=== PATIENT | male | born 1970 | race Caucasian/White ===

== ENCOUNTER → 2016-11-21 | Outpatient (CLI) | payer MEDICAID ==
[2016-11-21 10:51] LABS: Aty Lym Flag Slight; HCT 46.1 % (39.0-53.0); HDW 2.58; HGB 15.4 gm/dL (13.0-17.5); MCH 29.6 pg (25.0-35.0); MCHC 33.4 g/dL (31.0-37.0); MCV 88.7 fL (80.0-100.0); Mean Platelet Volume 6.5; RDW 12.9 % (11.5-15.5); WBC 3.6 k/uL (3.8-10.6); WBC (Perox) 3.79
[2016-11-21 10:56] LABS: ALT 82 U/L (21-72); AST 57 U/L (17-59); Alkaline Phosphatase 89 U/L (38-126); Anion Gap 11 mmol/L; Blood Urea Nitrogen 16 mg/dL (9-20); Calcium 9.7 mg/dL (8.4-10.2); Carbon Dioxide 27 mmol/L (22-30); Chloride 104 mmol/L (98-107); Cholesterol 189 mg/dL (<200); Glucose 88 mg/dL (74-99); HDL Cholesterol 51 mg/dL (40-60); Non-African American GFR(MDRD) >60 (>60 ml/min/1.73 sqM); Potassium 4.5 mmol/L (3.5-5.1); Sodium 142 mmol/L (137-145); Total Bilirubin 0.7 mg/dL (0.2-1.3); Total Protein 7.6 g/dL (6.3-8.2); Triglycerides 57 mg/dL (<150)
[2016-11-21 11:20] LABS: Add Differential Manual Differential
[2016-11-21 11:24] LABS: Nucleated Red Blood Cells 0 /100 WBC (0-0); Polychromasia Present; Total Cells Counted 200
[2016-11-21 13:03] LABS: Hemoglobin A1C 5.3 % (4.2-6.1)
== END | disposition home or self-care (01) ==
LOC: LABWHC1 10:20
PROVIDERS: ATTEND Family Medicine
DX: Z00.00 Encounter for general adult medical examination without abnormal findings (principal); E78.5 Hyperlipidemia, unspecified; E03.9 Hypothyroidism, unspecified
CPT/HCPCS: 36415; 80053; 80061; 83036; 84439; 84443; 85025

== ENCOUNTER → 2017-04-13 | Outpatient (CLI) | payer MEDICAID ==
--- NOTE | 2017-04-13 23:07 | MR ---
EXAMINATION TYPE: MR brain wo con DATE OF EXAM: 04/13/2017 COMPARISON: Correlation CT 12/11/2015 HISTORY: 46-year-old male Constant Headaches TECHNIQUE: Multiplanar, multisequence images of the brain and brainstem were acquired without IV con trast. Diffusion weighted imaging is performed. FINDINGS: No evidence for acute infarction, hemorrhage, mass, mass effect, midline shift, herniation, effacemen t of basal cisterns, or extra-axial fluid collection. The ventricles and sulci are age-appropriate. Major intracranial flow voids are intact. T2/FLAIR weighted sequences show no white matter signal abnormality. There is some pulsation artifact projecting in the left frontal subcortical region, axial image 19. Midline structures demonstrate normal morphology. The craniocervical junction is normal. Mild mucosal thickening ethmoid air cells. Globes are intact. IMPRESSION: No intracranial abnormality seen. Mild chronic ethmoid sinus disease.
== END | disposition home or self-care (01) ==
LOC: RADMRIMAIN 21:01
PROVIDERS: ATTEND Family Medicine
DX: R51 Headache (principal)
CPT/HCPCS: 70551

== ENCOUNTER → 2017-04-21 | Outpatient (CLI) | payer MEDICAID ==
--- NOTE | 2017-04-21 10:54 | US ---
EXAMINATION TYPE: US carotid duplex BILAT DATE OF EXAM: 04/21/2017 COMPARISON: NONE CLINICAL HISTORY: 46-year-old male R07.89 Atypical Chest Pain. Headaches. TECHNIQUE: Carotid Doppler duplex ultrasound examination. In direct Doppler criteria was utilized. FINDINGS: Tim scale images show no significant atherosclerotic change of the bifurcations. EXAM MEASUREMENTS: RIGHT: Peak Systolic Velocity (PSV) cm/sec ----- Right CCA: 85.4 ----- Right ICA: 88.8 ----- Right ECA: 131.6 ICA/CCA ratio: 1.0 RIGHT: End Diastole cm/sec ----- Right CCA: 29.8 ----- Right ICA: 27.1 ----- Right ECA: 31.9 LEFT: Peak Systolic Velocity (PSV) cm/sec ----- Left CCA: 101.8 ----- Left ICA: 100.5 ----- Left ECA: 91.7 ICA/CCA ratio: 1.0 LEFT: End Diastole cm/sec ----- Left CCA: 36.1 ----- Left ICA: 32.3 ----- Left ECA: 24.8 VERTEBRALS (direction of flow): Right Vertebral: Antegrade Left Vertebral: Antegrade IMPRESSION: No hemodynamically significant stenosis appreciated in either internal carotid artery. Criteria for Assigning % of Stenosis / Diameter reduction (Estimation based on the indirect measurements of the internal carotid artery velocities (ICA PSV). 1. Normal (no stenosis)=ICA PSV < 125 cm/s: ratio < 2.0: ICA EDV<40 cm/s. 2. Less than 50% stenosis=ICA PSV < 125 cm/s: ratio < 2.0: ICA EDV<40 cm/s. 3. 50 to 69% stenosis=ICA PSV of 125 to 230 cm/s: ration 2.0 ? 4.0: ICA EDV 40-100 cm/s. 4. Greater than 70% stenosis to near occlusion= ICA PSV > 230 cm/s: ratio > 4.0: ICA EDV > 100 cm/s. 5. Near occlusion= ICA PSV velocities may be low or undetectable: variable ratio and ICA EDV. 6. Total occlusion=unable to detect flow.
--- NOTE | 2017-04-21 14:48 | EST ---
DATE OF SERVICE: 04/21/2017 TYPE OF REPORT: NORMA EXERCISE STRESS TEST INDICATION: Chest pain. BASELINE HEART RATE: 86 BASELINE BLOOD PRESSURE: 138/79 MAXIMUM HEART RATE: 151 MAXIMUM BLOOD PRESSURE: 168/74 85% MPHR: 146 100% MPHR: 172 METS: 12.9 MAXIMUM STAGE REACHED: 5 TOTAL EXERCISE TIME: 12:30 Baseline EKG revealed normal sinus rhythm with poor R-wave progression over precordial leads and right ventricular conduction delay. Patient walked for 12 minutes, 30 seconds, maximum heart rate was 151 beats per minute which is more than 85% of predicted maximum. He developed fatigue and shortness of breath but did not have any angina or arrhythmia. EKG did not reveal any ST segment changes to indicate ischemia. FINAL IMPRESSION: 1. Excellent exercise capacity with a negative stress test by EKG criteria. 2. The patient did not have any significant symptoms, angina or any arrhythmia. MEME
--- NOTE | 2017-04-22 10:58 | ECHOF ---
Referral Reason:R07.89 Atypical Chest Pain MEASUREMENTS -------- HEIGHT: 182.9 cm WEIGHT: 83.9 kg BP: IVSd: 1.3 cm (0.6 - 1.1) LVIDd: 4.1 cm (3.9 - 5.3) LVPWd: 1.4 cm (0.6 - 1.1) IVSs: 1.7 cm LVIDs: 3.2 cm LVPWs: 1.8 cm Ao Diam: 3.7 cm (2.0 - 3.7) AV Cusp: 2.3 cm (1.5 - 2.6) LA Diam: 3.5 cm (2.7 - 3.8) MV EXCURSION: 21.866 mm (> 18.000) MV EF SLOPE: 118 mm/s (70 - 150) EPSS: 0.4 cm MV E Julian: 0.46 m/s MV DecT: 162 ms MV A Julian: 0.45 m/s MV E/A Ratio: 1.01 RAP: 5.00 mmHg RVSP: 10.25 mmHg FINDINGS -------- Sinus rhythm. This was a technically good study. There is mild concentric left ventricular hypertrophy. Overall left ventricular systolic function is normal with, an EF between 55 - 60 %. The right ventricle is normal in size and function. The left atrium is normal in size. The right atrium is normal in size. The aortic valve is trileaflet, and appears structurally normal. No aortic stenosis or regurgitation. There is trace mitral regurgitation. Trace tricuspid regurgitation present. The right ventricular systolic pressure, as measured by Doppler, is 10.25mmHg. Pulmonic valve appears structurally normal. The aortic root, ascending aorta and aortic arch are normal. Normal inferior vena cava with normal inspiratory collapse consistent with estimated right atrial pressure of 5 mmHg. The pericardium is normal. CONCLUSIONS -------- 1. Sinus rhythm. 2. Trace tricuspid regurgitation present. 3. The right ventricular systolic pressure, as measured by Doppler, is 10.25mmHg. 4. Pulmonic valve appears structurally normal. 5. The aortic root, ascending aorta and aortic arch are normal. 6. Normal inferior vena cava with normal inspiratory collapse consistent with estimated right atrial pressure of 5 mmHg. 7. The pericardium is normal. 8. This was a technically good study. 9. There is mild concentric left ventricular hypertrophy. 10. Overall left ventricular systolic function is normal with, an EF between 55 - 60 %. 11. The right ventricle is normal in size and function. 12. The left atrium is normal in size. 13. The right atrium is normal in size. 14. The aortic valve is trileaflet, and appears structurally normal. No aortic stenosis or regurgitation. 15. There is trace mitral regurgitation. ASSOCIATE PROJECT MANAGER: Shivani Matt RDCS
== END | disposition home or self-care (01) ==
LOC: RADUSMAIN 09:45
PROVIDERS: ATTEND Family Medicine
DX: I51.7 Cardiomegaly (principal); I08.1 Rheumatic disorders of both mitral and tricuspid valves; R07.89 Other chest pain
CPT/HCPCS: 93017; 93306; 93880

== ENCOUNTER 2020-12-13 07:39 | Day surgery (SDC) | payer BC ==
[2020-12-11 10:46] VITALS: BMI 25.0
[~2020-12-13 07:39] MED LIST: LACTATED RINGERS 1,000 ML IV SCH
[2020-12-13 07:57] VITALS: TEMP 97.7
[2020-12-13] MEDS ORDERED: PROPOFOL 10 MG/ML 20 ML VIAL IV ONE (08:18)
--- NOTE | 2020-12-13 08:34 | P.GSHP ---
History of Present Illness H&P Date: 12/13/20 50-year-old male presents today for screening colonoscopy. He states this is his second colonoscopy. Denies any blood in his bowel movements. Denies any significant bowel changes. States he does have a family history of colon cancer with his mother being diagnosed with colon cancer. No additional complaints at this time. - Review of Systems All systems: negative Past Medical History Past Medical History: Hyperlipidemia, Prostate Disorder, Thyroid Disorder Additional Past Medical History / Comment(s): Lupus ? , History of Any Multi-Drug Resistant Organisms: MRSA Date of last positivie culture/infection: 2011/MRSA MDRO Source:: right leg Past Surgical History: Tonsillectomy Additional Past Surgical History / Comment(s): COLONOSCOPY Smoking Status: Never smoker - Past Family History Mother Family Medical History: Cancer Additional Family Medical History / Comment(s): COLON Medications and Allergies Home Medications Medication Instructions Recorded Confirmed Type Levothyroxine Sodium [Unithroid] 100 mcg PO HS 12/11/15 12/11/20 History PARoxetine HCL [Paxil] 20 mg PO HS 12/11/15 12/13/20 History Atorvastatin [Lipitor] 20 mg PO HS 12/11/20 12/11/20 History Finasteride [Proscar] 5 mg PO DAILY 12/11/20 12/11/20 History Allergies Allergy/AdvReac Type Severity Reaction Status Date / Time clindamycin Allergy Rash/Hives Verified 12/13/20 07:50 Sulfa (Sulfonamide Allergy Rash/Hives Verified 12/13/20 07:50 Antibiotics) Surgical - Exam Osteopathic Statement: *. No significant issues noted on an osteopathic structural exam other than those noted in the History and Physical/Consult. Vital Signs Temp Pulse Resp BP Pulse Ox 97.7 F 84 17 158/75 96 12/13/20 07:56 12/13/20 07:56 12/13/20 07:56 12/13/20 07:56 12/13/20 07:56 - General well nourished, no distress - Respiratory normal respiratory effort - Abdomen Abdomen: soft, non tender Assessment and Plan Plan: 50-year-old male presents for screening colonoscopy. Risks, benefits and alternatives were provided to the patient. He did provide consent prior to attending the endoscopy suite. Plan for colonoscopy and further recommendations after procedure.
--- NOTE | 2020-12-13 08:35 | P.PCN ---
Date of Procedure: 12/13/20 Preoperative Diagnosis: Screening for colon cancer Postoperative Diagnosis: Screening for colon cancer Internal hemorrhoids Procedure(s) Performed: Colonoscopy Anesthesia: MAC Surgeon: Berkley Lucas Pathology: none sent Condition: stable Disposition: same day Indications for Procedure: 50-year-old male presents for screening colonoscopy. He does have a family history of colon cancer diagnosed. He denies any recent blood in his stool. This is his second colonoscopy. Risks, benefits and alternatives were provided to the patient. He did provide consent prior to attending the endoscopy suite. Operative Findings: Overall, normal colon Internal hemorrhoids Description of Procedure: The patient was brought to the endoscopy suite and placed in left lateral decubitus position and adequate sedation was achieved using conscious sedation. A digital rectal exam was performed and internal hemorrhoids were palpated. An endoscope was then placed in the rectum and advanced to the cecum as identified by landmarks including the appendiceal orifice and the ileocecal valve. The prep was good. The colonoscope was then slowly withdrawn, examining for any mucosal abnormalities. The cecum, ascending, transverse, descending and sigmoid colon were visualized adequately. There were no large neoplastic lesions noted throughout the colon. There were no polyps noted throughout the colon. There was no evidence of diverticulosis. Retroflexion was performed in the rectum and internal hemorrhoids were visible. Excess air was removed, the colonoscope was withdrawn and the procedure terminated. The patient was then transferred to the recovery unit in stable condition. Repeat colonoscopy should be performed in 5 years due to patient's family history of colon cancer.
[2020-12-13 08:37] VITALS: RESP 16
[2020-12-13 08:51] VITALS: BP 119/71; PULSE 65
== END 2020-12-13 09:08 | disposition home or self-care (01) ==
LOC: ORWHC2ENDO 07:39
PROVIDERS: ATTEND Surgery
DX: Z12.11 Encounter for screening for malignant neoplasm of colon (principal); K64.8 Other hemorrhoids; E78.5 Hyperlipidemia, unspecified; E07.9 Disorder of thyroid, unspecified; Z80.0 Family history of malignant neoplasm of digestive organs; Z79.890 Hormone replacement therapy; Z79.899 Other long term (current) drug therapy; Z86.14 Personal history of Methicillin resistant Staphylococcus aureus infection; Z88.1 Allergy status to other antibiotic agents; Z88.2 Allergy status to sulfonamides
CPT/HCPCS: J2704; G0121; 45378

== ENCOUNTER → 2021-05-23 | Outpatient (CLI) | payer BC ==
[2021-05-23 13:55] LABS: Appearance,Urine Clear (Clear); Bilirubin,Urine Negative (Negative); Blood,Urine Negative (Negative); Color,Urine Yellow; Glucose,Urine (UA) Negative (Negative); Hyaline Casts,Urine 1 /lpf (0-2); Ketones,Urine Negative (Negative); Leukocyte Esterase,Urine Negative (Negative); Mucus,Urine Few /hpf; Nitrite,Urine Negative (Negative); Protein,Urine 1+ (Negative); RBC,Urine 1 /hpf (0-5); Specific Gravity,Urine 1.027 (1.001-1.035); Squamous Epithelial Cell,Urine <1 /hpf (0-4); Urobilinogen,Urine <2.0 mg/dL (<2.0); WBC,Urine <1 /hpf (0-5)
[2021-05-23 20:15] LABS: Basophils # (A) 0.06 X 10*3/uL (0.00-0.10); Basophils % (A) 1.1 %; Eosinophils # (A) 0.13 X 10*3/uL (0.04-0.35); Eosinophils % (A) 2.5 %; HGB 15.5 g/dL (13.0-17.0); Lymphocytes # (A) 1.25 X 10*3/uL (0.90-5.00); Lymphocytes % (A) 23.6 %; MCH 29.8 pg (27.0-32.0); MCHC 34.4 g/dL (32.0-37.0); MCV 86.5 fL (80.0-97.0); Monocytes # (A) 0.51 X 10*3/uL (0.20-1.00); Monocytes % (A) 9.6 %; Neutrophils # (A) 3.34 X 10*3/uL (1.80-7.70); Platelet Count 259 X 10*3/uL (140-440); RDW 12.4 % (11.5-14.5)
[2021-05-23 21:38] LABS: Erythrocyte Sedimentation Rate 3 mm/Hr (0-20)
[2021-05-23 23:46] LABS: DNA Double-Stranded NEGATIVE (NEGATIVE)
[2021-05-24 05:35] LABS: ALT 59 U/L (10-49); AST 32 U/L (14-35); Albumin/Globulin Ratio 2.13 (1.60-3.17); Alkaline Phosphatase 85 U/L (41-126); C Reactive Protein <0.4 mg/dL (0.0-0.8); Calcium 9.8 mg/dL (8.7-10.3); Carbon Dioxide 23.4 mmol/L (21.6-31.8); Chloride 104 mmol/L (96-109); Globulin 2.3 g/dL (1.6-3.3); Glucose 96 mg/dL (70-110); Non-African American GFR(CKD) 102.7 (60.0-200.0); Potassium 4.2 mmol/L (3.5-5.5); Sodium 139 mmol/L (135-145); Total Bilirubin 0.6 mg/dL (0.3-1.2); Total Protein 7.2 g/dL (6.2-8.2)
== END | disposition home or self-care (01) ==
LOC: LABWHC1 11:22
PROVIDERS: ATTEND Internal Medicine Rheumatology
DX: M32.9 Systemic lupus erythematosus, unspecified (principal)
CPT/HCPCS: 36415; 80053; 81001; 85025; 85652; 86140; 86160; 86225

== ENCOUNTER → 2022-02-12 | Outpatient (CLI) | payer BC ==
--- NOTE | 2022-02-12 18:33 | CONS ---
CONSULTATION DATE OF SERVICE: 02/12/2022 This 51-year-old gentleman has been evaluated in Sleep Center for possible obstructive sleep apnea-hypopnea syndrome. HISTORY OF PRESENT ILLNESS/SLEEP-WAKE EVALUATION: Patient's usual sleep schedule is from 10 p.m. to 6:30 a.m. on weekdays and from 11 p.m. to 7 or 7:30 a.m. on weekends. No problems with falling asleep, although he has a TV set in the bedroom. He usually sleeps on the side and stomach positions. According to his , he has loud snoring and witnessed episodes of stopped breathing during sleep. He wakes up from sleep up to 4 times with 2 episodes of nocturia. No history of hypnagogic hallucinations, sleep paralysis or cataplexy. In the morning the patient wakes up tired, has episodes of depression, anxiety. [place] Sleepiness Scale is 3. Usually he does not take naps. PAST MEDICAL HISTORY: Positive for systemic lupus erythematosus, hypothyroidism, hyperlipidemia. PAST SURGICAL HISTORY: Tonsillectomy. SOCIAL HISTORY: Negative for smoking or using alcohol. MEDICATIONS: Hydroxychloroquine mg once a day, finasteride 5 mg once a day, paroxetine 20 mg once a day, levothyroxine 100 mcg once a day, atorvastatin 10 mg once a day. FAMILY HISTORY: Colon cancer in his mother, thyroid problems. REVIEW OF SYSTEMS: Multiple awakenings from sleep, snoring. No fevers. No double vision. No recent chest pain. No shortness of breath. No abdominal pain. No bleeding episodes. No blood in the urine. No seizure episodes. PHYSICAL EXAMINATION: GENERAL APPEARANCE: Pleasant gentleman without distress. VITAL SIGNS: BP 131/78, HR 86, RR 16, height 6 feet 1 inch, weight 195 pounds, body mass index 25.7, temperature 98.3, oxygen saturation at room air 97%. HEENT: PERRLA, EOMI, evaluation of oropharynx showed tongue protrudes midline. Low position of soft palate; Mallampati III to IV. NECK: Supple, no JVD. Thyroid is not palpable. Neck measures 15 inches in circumference. LUNGS: Clear to percussion and to auscultation. Good air exchange. No wheezing or rhonchi. HEART: S1, S2 regular. No murmurs, gallops, or rubs. ABDOMEN: Soft and nontender. Bowel sounds are present. No organomegaly appreciated. EXTREMITIES: No clubbing or cyanosis. PLOW SHAKER: Awake, alert, and oriented X3. Cranial nerves 2 to 7 intact. There is no fasciculation or atrophy. noted. No focal deficits observed. IMPRESSION: 1. Loud snoring, witnessed episodes of stopped breathing during sleep, low position of soft palate, Mallampati III to IV; obstructive sleep apnea-hypopnea syndrome. 2. Systemic lupus erythematosus with history and skin lesion. 3. Hypothyroidism. 4. Hyperlipidemia. 5. Status post tonsillectomy. PLAN: 1. Home sleep apnea test for evaluation of patient's breathing during sleep to confirm diagnosis of obstructive sleep apnea/hypopnea syndrome. 2. CPAP/BiPAP titration if sleep study confirms obstructive sleep apnea-hypopnea syndrome. 3. Preferable position during sleep on the side. 4. No driving if patient feels any sleepiness. 5. I will see patient for follow up visit to explain results of testing and following plan. Thank you very much for referring this patient for consultation. Sincerely, Jc Rosario MD, PhD, FAASM Diplomat of [employer] Sleep Medicine Board of [place] [employer] [facility] [place] MMODL / IJN: [id number] /
== END | disposition home or self-care (01) ==
LOC: SLEEP 16:22
PROVIDERS: ATTEND Internal Medicine
DX: G47.33 Obstructive sleep apnea (adult) (pediatric) (principal); E03.9 Hypothyroidism, unspecified; E78.5 Hyperlipidemia, unspecified; Z90.89 Acquired absence of other organs; Z87.2 Personal history of diseases of the skin and subcutaneous tissue

== ENCOUNTER → 2022-07-15 | Outpatient (CLI) | payer BC ==
--- NOTE | 2022-07-15 17:09 | P.PN ---
Subjective DATE: 07/15/2022 FOLLOW UP VISIT. Patient with obstructive sleep apnea hypopnea syndrome return to sleep center for follow-up visit. Recently patient had sleep study which documented obstructive sleep apnea hypopnea syndrome. Patient was initiated on PAP therapy and today is first visit after treatment was started. I discuss results of sleep studies with patient in details Patient was able to use PAP equipment every night for the whole night. The patient does not have significant problems with the mask, PAP pressure and humidification. [place] sleepiness scale is 3. I checked information from PAP unit. PAP unit pressure 5-15, average 11.2 cm H2O. Usage is 100% and 80 % for more then 4 hours, average 6 hours per night. Leak is 16.9 l/m, which is in acceptable range. Apnea Hypopnea Index is 1.7, which is normal. MEDICATIONS:1. Paroxetine 20 mg once a day 2. Levothyroxine 100 g once a day 3. Atorvastatin 10 mg once a day 4. Hydroxychloroquine 5. Finasteride 5 mg once a day During physical exam: GENERAL: A pleasant patient without any distress. VITAL SIGNS: BP 139/88, HR 88, RR 16, weight 198, temperature 98.2, oxygen saturation at room air 96%. HEENT: PERRLA, EOMI.low position of soft palate, Mallapati 3-4 . NECK: Supple. No JVD. LUNGS: Clear to percussion and to auscultation. Good air exchange. No wheezing or rhonchi. HEART: S1, S2 regular. ABDOMEN: Soft and nontender.[] EXTREMITIES: No clubbing or cyanosis. LOGISTICS TEAM LEADER: Awake, alert, and oriented x3. No focal deficit. Impressions: 1. Obstructive sleep apnea-hypopnea syndrome. Patient demonstrated great compliance with treatment, benefiting from treatment. 2. History of systemic lupus erythematodes. 3. Hypothyroidism. 4. Hyperlipidemia. 5. Status post tonsillectomy. Plan: 1. Continue using PAP equipment every night for the whole night. 2. To change air filter at least 1-2 times per month. 3. PAP unit should stay lower then position of the head. 4. Advised patient to remove all remaining water from humidifier canister daily and make it dry after each usage. Refill canister with fresh distilled water before each usage. 5. Sleep hygiene with regular time in bed for at least 8 hours. 6. Precautions related to driving. No driving if feel any sleepiness. 7. I will maintain prescription for PAP supplies including mask, tube, filters. 8. Follow up visit in 6 months or earlier if patient has any problems. 9. Watching weight. Thank you very much for allowing me to participate in the management of your patient. Jc Rosario MD, PhD, FAASM. Diplomat of [place] [employer], Sleep Medicine Board by [place] [employer]duit Reamer Operator [facility] [place]
== END | disposition home or self-care (01) ==
LOC: SLEEP 16:37
PROVIDERS: ATTEND Internal Medicine
DX: G47.33 Obstructive sleep apnea (adult) (pediatric) (principal); M32.9 Systemic lupus erythematosus, unspecified; E07.9 Disorder of thyroid, unspecified; E78.5 Hyperlipidemia, unspecified
CPT/HCPCS: 99212

== ENCOUNTER → 2023-11-16 | Outpatient (CLI) | payer BC ==
--- NOTE | 2023-11-17 12:42 | XR ---
EXAMINATION TYPE: XR chest 2V DATE OF EXAM: 11/16/2023 COMPARISON: None HISTORY: 52-year-old male J18.9, cough, congestion, possible pneumonia TECHNIQUE: Frontal and lateral views FINDINGS: The cardiomediastinal silhouette, aorta, and pulmonary vasculature are within normal limits. Lungs an d pleural spaces are clear. IMPRESSION: No acute cardiopulmonary process.
== END | disposition home or self-care (01) ==
LOC: RADXRMAIN 10:21
PROVIDERS: ATTEND Family Medicine
DX: J18.9 Pneumonia, unspecified organism (principal); R05.9 Cough, unspecified; R09.89 Other specified symptoms and signs involving the circulatory and respiratory systems
CPT/HCPCS: 71046